=== PATIENT | female | born 1955 | race Caucasian/White ===

== ENCOUNTER 2019-07-27 07:00 | Observation (INO) | payer MEDICARE ==
--- NOTE | 2019-07-17 15:30 | HP ---
AMENDED REPORT NOW INCLUDES DESIGNATED COSIGNER - ESIGNED BEFORE ADJUSTMENTS CC: Dr. Kinsey; Dr. Shobha Conteh; Dr. Brown * PREOPERATIVE HISTORY AND PHYSICAL: DATE OF ADMISSION/SURGERY: 07/24/19 This patient is scheduled for same-day surgery admission with overnight extension by Dr. Copeland on 07/27/19. DATE OF PREOPERATIVE HISTORY AND PHYSICAL EXAMINATION: 07/17/19 ATTENDING SURGEON: Dr. Shanice Copeland * (dictated by Emili Howell, ANN) CHIEF COMPLAINT: Left breast cancer. HISTORY OF PRESENT ILLNESS: The patient is a 63-year-old female who underwent needle localization and excision of left breast cancer by Dr. Copeland, 06/22/19. 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 After discussion with Dr. Brown, Dr. Copeland has recommended a completion left mastectomy and sentinel lymph node biopsy. The patient expressed an interest in immediate reconstruction and was referred to Dr. Kinsey. Dr. Copeland described the nature of the left mastectomy and sentinel lymph node biopsy, The rationale for the procedure, the relevant risks and benefits, and today I discussed the typical postoperative care and recovery. The patient has an appointment with Dr. Kinsey tomorrow for her preop visit and knows that she will have further patient education at that time. The patient has had a chance to ask questions and stated that she understands the information and is satisfied with the answers given to all questions. She will sign surgical consent on the day of surgery. Additional information includes no family history of breast or ovarian cancer; she was on control pills off and on for about 10 years, more than 20 years ago. No other hormonal therapy was taken. She was about 12 with her first menstrual period; she had a at age 16 and that child at age 2-1/2. She did breastfeed with her subsequent pregnancies. She believes she went through menopause between age 43 and 48. PAST MEDICAL HISTORY: 1. Hypertension. 2. Seasonal allergies. 3. Anxiety. PAST SURGICAL HISTORY: 1. Needle localization, excision of left breast cancer 06/22/[address] Copeland. 2. Left shoulder surgery 2010 and right knee surgery 2012. OB HISTORY: 2, para 2. She is up to date with pelvic exam, Pap smear, breast exam, and mammogram in 2019 and is postmenopausal. MEDICATIONS: 1. Fluoxetine 10 mg p.o. daily. 2. Losartan potassium 100 mg p.o. daily. 3. Xyzal 5 mg p.o. daily. 4. Ferrous sulfate 325 mg p.o. daily. 5. Multivitamin 1 tablet daily. 6. Vitamin C 500 mg 1 tablet daily. ALLERGIES: No known drug allergies. She does have severe tape allergies that cause severe skin irritation. FAMILY HISTORY: No known breast or ovarian cancer. No known anesthesia complications or bleeding tendencies. No known clotting disorders; mother from colon cancer, father from bladder cancer and coronary artery disease. She has 1 brother with the history of thyroid cancer and prostate cancer and 1 sister who is alive and well. SOCIAL HISTORY: She is ; she has never been a smoker. She drinks 2 to 3 glasses of wine daily. She denies the use of other substances. REVIEW OF SYSTEMS: Constitutional: No fevers, chills, night sweats, excessive fatigue, or unintended weight loss. Endocrine: No diabetes or thyroid disease. Hematologic: No easy bruising or bleeding. Breasts: As described in history of present illness, and currently she has experienced postoperative left breast incisional pain that Dr. 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 Respiratory: No dyspnea on exertion. No chronic cough. Cardiovascular: No anginal chest pain or palpitations. Gastrointestinal: No nausea, vomiting, diarrhea, GI bleeding, or constipation. No change in bowel habits. Genitourinary: No dysuria. Musculoskeletal: Normal strength and tone. Integumentary: No chronic rashes or skin changes. Neurologic: No headache or blurred vision, no areas of focal weakness or numbness. General: No history of anesthesia complications, no history of deep vein thrombosis or pulmonary embolism. No previous blood transfusions. PHYSICAL EXAMINATION GENERAL SURVEY: The patient is a 63-year-old female, well developed, well nourished, in no acute distress. VITAL SIGNS: Height 65 inches, weight 173 pounds, body mass index 28.8. Blood pressure 120/82, pulse 78 and regular, respiratory rate 12, temperature 97 tympanic. HEENT: Benign. NECK: Supple. No cervical lymphadenopathy. No supraclavicular lymphadenopathy. BREASTS: Symmetrical. Left breast with well-healed surgical scar with a mildly palpable "cord" possibly consistent with Mondor's phlebitis. No erythema or evidence of infection. Palpation of the right breast reveals no discrete masses. Palpation of the left breast reveals induration consistent with surgical scaring but otherwise no other discrete masses. The axillae have no adenopathy. There is no nipple retraction or nipple discharge bilaterally. LUNGS: Breath sounds bilaterally clear and equal. HEART: Regular rate and rhythm. No murmurs or rubs. ABDOMEN: Soft, nontender throughout and nondistended. Pelvic and rectal exams deferred. EXTREMITIES: Warm without edema or skin ulceration. NEUROLOGIC: Alert and oriented x3. Steady gait. SKIN: Warm, dry, intact. IMPRESSION: Malignant neoplasm, left breast. PLAN: Same-day surgery admission with overnight extension to Dr. Copeland's service on 07/27/19 for left mastectomy and sentinel lymph node biopsy; Dr. Kinsey plans to do immediate reconstruction at the same setting. TIME SPENT: Sixty minutes with greater than 50% in [id number], the patient's physical examination, history taking, and coordination of care. AKANKSHA HOWELL NP [id number]/[facility] #: [id number] GLADIS
[~2019-07-27 07:00] MED LIST: Buffered Lidocaine 1% SYRIN* 1 ML/SYRINGE INTRADERM ONE; Famotidine IV* 10 MG/ML 2 ML (20 mg) IV ONE; Lactated Ringers 1000 ML Bag* 1,000 ML IV SCH
--- OUTSIDE RECORDS SUMMARY | 2019-07-27 07:04 | XMS REPORT | Continuity of Care Document ---
:1955 External Reference #:[id number] Author Name Emili Lieberman NP (transmitted by agent of provider Juli Thomas) Address [address] [place] [address] Care Team Providers Name Role Phone Shobha Conteh MD - Internal Care Team Information Transportation Manager [phone] Medicine Problems Description No Information Available Social History Type Date Description Comments Sex Unknown Tobacco Use Start: Unknown Never Smoked Cigarettes Smoking Status Reviewed: 07/17/19 Never Smoked Cigarettes ETOH Use Currently consumes wine with dinner alcohol Tobacco Use Start: Unknown Patient has never smoked Recreational Drug Use Denies Drug Use Exercise Type/Frequency Exercises sporadically Allergies, Adverse Reactions, Alerts Description No Known Drug Allergies Medications Active Medications SIG Qnty Indications Ordering Provider Date Fluoxetine HCL qd Elver Hassan 10mg MD Thiago Capsules Losartan Potassium 1 by mouth every Unknown 100mg day Tablets Multivitamin Adult 1 by mouth every Unknown Tablets day Ferrous Sulfate 1 by mouth every Unknown 325(65Fe) day mg Tablets Vitamin C 1 by mouth every Unknown 500mg Capsules day Immunizations Description No Information Available Vital Signs Date Vital Result Comment 07/17/2019 9:25am Height 65 inches 5'5" Weight 173.00 lb Heart Rate 78 /min BP Systolic Sitting 120 mmHg BP Diastolic Sitting 82 mmHg Respiratory Rate 12 /min Body Temperature 97.0 F BMI (Body Mass Index) 28.8 kg/m2 07/05/2019 1:22pm Heart Rate 66 /min Respiratory Rate 16 /min Body Temperature 97.0 F Results Test Date Facility Test Result H/L Range Note Laboratory test 06/22/2019 [facility] Surgical SEE RESULT [address] [place] [address] [phone] 1 SEE RESULT BELOW Name: KYLEIGH BOWLES : [address]: Shanice Copeland MD Acct: [id number] Unit: [id number] AGE: 63 Location: [facility] Re06/22/19 SEX: F [place] [facility] [place]: [id number] CIRILO: 06/22/19- SUBM DR: Shanice Copeland MD REQ: [id number] RECD: 06/22/191358 STATUS: JT MORALES DR: Jaswinder Willard MD _ ORDERED: LEVEL 5 FINAL DIAGNOSIS Breast, left, lumpectomy: -- Ductal carcinoma in situ (DCIS), with: Size: approximately 4 cm. Extent and distribution: Involves lateral and mid specimen. Architectural pattern: Solid, comedo, and micropapillary types. Nuclear grade: High. Necrosis: Present. Microcalcifications: Present. Microinvasion: Not identified. ER/TN by immunohistochemistry with appropriate controls: ER: Per [id number] negative (0%). TN: Per N30-9079 negative (0%). Margins: DCIS is 0.5 mm from the inferior anterior margin and 2 mm from the deep margin. DCIS is greater than 5 mm from the anterior superior margin. Other findings: None. pTNM histopathologic stage: pTis. PRE-OPERATIVE DIAGNOSIS Needle localization excision of left breast ductal carcinoma in situ, suture coleman short superior, long lateral, medium medial CONTINUED ON NEXT PAGE DEPARTMENT OF PATHOLOGY, [address] [place] [address] Brooks Farias M.D. Director [facility] # [id number] RUN DATE: 06/28/19 [facility] LAB LIVE PAGE 2 Patient: KYLEIGH BOWLES [id number] (Continued) GROSS DESCRIPTION (Continued) GROSS DESCRIPTION The specimen is received fresh labeled, Left Breast Ductal Carcinoma In Situ , and consists of a 7.8 x 5.8 x 3.6 cm yellow ovoid portion of fibrofatty soft tissue with three attached sutures which are designated as follows: long-lateral, short-superior and medium-medial. The specimen is partially surfaced by a 2.8 x 0.9 cm littlejohn-white wrinkled skin ellipse on the mid anterior surface. There is a needle localization wire entering the specimen through the skin ellipse and extending towards the central specimen. There is an ill- defined dense focally nodular littlejohn-white area of fibrous tissue measuring up to 2.1 cm within the central specimen associated with the localization wire, 1.0 cm from the deep margin, 1.1 cm from the superior anterior margin, and 1.2 cm from the skin. A definitive lesion is not identified. The remaining cut surface consists predominantly of yellow lobulated adipose tissue with scant interspersed littlejohn dickey fibrous tissue. The specimen is inked as follows : superior anterior-blue, inferior anterior-green and deep-black, serially sectioned from lateral to medial and practice representative sections are submitted in cassettes A through P to include dense area in cassettes B through H including section associated with wire in cassettes G and H. Signed by and Reported on: Dejah Pyle MD 06/28/19 0947 END OF REPORT DEPARTMENT OF PATHOLOGY, [address] [place] [address] Brooks Farias M.D. Director [facility] # [id number] Procedures Date Code Description Status 06/22/2019 89430 Mastectomy Partial Completed 06/22/2019 [id number] Mammogram Completed 05/28/2019 [id number] Mammogram Completed 05/23/2019 [id number] Mammogram Completed 04/08/2017 [id number] Mammogram Completed Medical Devices Description No Information Available Encounters Type Date Location Provider Dx Diagnosis Office Visit 06/01/2019 Surgical Shanice Copeland, C50.912 Malignant neoplasm 11:00a [facility] of unspecified site of left female breast Assessments Date Code Description Provider 07/17/2019 C50.912 Malignant neoplasm of unspecified site Emili Lieberman NP of left female breast 07/17/2019 Z01.818 Encounter for other preprocedural Emili Lieberman NP examination 07/05/2019 C50.912 Malignant neoplasm of unspecified site Shanice Copeland MD of left female breast 07/04/2019 C50.912 Malignant neoplasm of unspecified site Shanice Copeland MD of left female breast 06/29/2019 C50.912 Malignant neoplasm of unspecified site Shanice Copeland MD of left female breast 06/22/2019 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 Copeland MD breast 06/01/2019 C50.912 Malignant neoplasm of unspecified site Shanice Copeland MD of left female breast Plan of Treatment Future Appointment(s):07/27/2019 12:00 pm - Emili Lieberman NP at [facility]07/27/2019 12:00 pm - Shanice Copeland MD at [facility]08/08/2019 8:30 am - Shanice Copeland MD at [facility]07/17/2019 - Emili Lieberman, NPC50.912 Malignant neoplasm of unspecified site of left female breastFollow up:[facility] Encounter for other preprocedural examination Functional Status Description No Information Available Mental Status Description No Information Available Referrals Refer to Reason for Referral Status Appt Date Alexis Kinsey MD Pt. with DCIS needs mastectomy; would like Closed 07/11 immediate reconstruction. [address] [place] [address] [phone] Rico Wheatley MD Newly diagnosed left breast cancer; planning Closed 07/2019 breast conservation [address] [place] [phone]
--- OUTSIDE RECORDS SUMMARY | 2019-07-27 07:04 | XMS REPORT | Continuity of Care Document ---
:1955 External Reference #:[id number] Author Name Payton Brown M.D. (transmitted by agent of provider Argelia Ceballos) Address [address] [facility] [address] [place] [address] Care Team Providers Name Role Phone Shobha Conteh MD - Internal Care Team Information Outreach Team Member [phone] Medicine Problems Description No Information Available Social [...] by mouth every Unknown 500mg Capsules day Xyzal 1 tab po daily Unknown 5mg Tablets Immunizations Description No Information Available Vital Signs [...] Date Facility Test Result H/L Range Note CBC Auto 07/23/2019 [facility] White Blood 5.4 10^3/uL Normal 3.5-10.8 Diff [facility] [place] [address] [phone] Red Blood Count 4.52 10^6/uL Normal 3.70-4.87 Hemoglobin 14.5 g/dL Normal 12.0-16.0 Hematocrit 43 % Normal 35-47 Mean Corpuscular Volume 95 fL Normal 80-97 Mean Corpuscular Hemoglobin 32 pg High 27-31 Mean Corpuscular HGB Conc 34 g/dL Normal 31-36 Red Cell Distribution Width 14 % Normal 10-15 Platelet Count 202 10^3/uL Normal 150-450 Mean Platelet Volume 9.8 fL Normal 7.4-10.4 Abs Neutrophils 3.4 10^3/uL Normal 1.5-7.7 Abs Lymphocytes 1.1 10^3/uL Normal 1.0-4.8 Abs Monocytes 0.7 10^3/uL Normal 0-0.8 Abs Eosinophils 0.1 10^3/uL Normal 0-0.6 Abs Basophils 0.1 10^3/uL Normal 0-0.2 Abs Nucleated RBC 0.0 10^3/uL Granulocyte % 63.1 % Lymphocyte % 21.2 % Monocyte % 12.2 % Eosinophil % 2.3 % Basophil % 1.2 % Nucleated Red Blood Cells % 0.1 Basic Metabolic 07/23/2019 [facility] Sodium 141 mmol/L Normal 135-145 Panel [facility] [place] [address] [phone] Potassium 4.3 mmol/L Normal 3.5-5.0 Chloride 106 mmol/L Normal 101-111 Co2 Carbon Dioxide 29 mmol/L Normal 22-32 Anion Gap 6 mmol/L Normal 2-11 Glucose 96 mg/dL Normal 70-100 Blood Urea Nitrogen 19 mg/dL Normal 6-24 Creatinine 0.67 mg/dL Normal 0.51-0.95 BUN/Creatinine Ratio 28.4 High 8-20 Calcium 9.6 mg/dL Normal 8.6-10.3 Egfr Non- 88.3 >60 Egfr 106.9 >60 1 Type & Screen 07/23/2019 [facility] Patient Blood [place] [address] [phone] Antibody Screen NEGATIVE Laboratory test 06/22/2019 [facility] Surgical SEE RESULT [address] [place] [address] [phone] 1 Because ethnic data is not always readily available, this report includes an eGFR for both -Americans and non- Americans. The National Kidney Disease Education Program (NKDEP) does not endorse the use of the MDRD equation for patients that are not between the ages of 18 and 70, are , have extremes of body size, muscle mass, or nutritional status, or are non- or non-. According to the National Kidney Foundation, irrespective of diagnosis, the stage of the disease is based on the level of kidney function: Stage Description GFR(mL/min/1.73 m(2)) 1 Kidney damage with normal or decreased GFR 90 2 Kidney damage with mild decrease in GFR 60-89 3 Moderate decrease in GFR 30-59 4 Severe decrease in GFR 15-29 5 Kidney failure <15 (or dialysis) 2 SEE RESULT BELOW Name: KYLEIGH LABOY : [address]: Shanice Copeland MD Acct: [id number] Unit: [id number] AGE: 63 Location: [facility] Re06/22/19 SEX: F Status: REG [facility] [place] SPEC: [id number] CIRILO: 06/22/19- SUBM DR: Shanice Copeland MD REQ: [id number] RECD: 06/22/198 STATUS: JT MORALES DR: Jaswinder Willard MD _ ORDERED: LEVEL 5 FINAL DIAGNOSIS Breast, left, lumpectomy: -- Ductal carcinoma in situ (DCIS), with: Size: approximately 4 cm. Extent and distribution: Involves lateral and mid specimen. Architectural pattern: Solid, comedo, and micropapillary types. Nuclear grade: High. Necrosis: Present. Microcalcifications: Present. Microinvasion: Not identified. ER/IA by immunohistochemistry with appropriate controls: ER: Per [id number] negative (0%). IA: Per [id number] negative (0%). Margins: DCIS is 0.5 mm [...] CONTINUED ON NEXT PAGE DEPARTMENT OF PATHOLOGY, [address] [place] [address] Brooks Farias M.D. Director [facility] # [id number] RUN DATE: 06/28/19 [facility] LAB LIVE PAGE 2 Patient: KYLEIGH LABOY [id number] (Continued) GROSS DESCRIPTION (Continued) GROSS DESCRIPTION The [...] serially sectioned from lateral to medial and healthcare sales representative sections are submitted in cassettes A through P to include dense area in cassettes B through H including section associated with wire in cassettes G and H. Signed by and Reported on: Dejah Pyle MD 06/28/19 0947 END OF REPORT DEPARTMENT OF PATHOLOGY, [address] [place] [address] Brooks Farias M.D. Director [facility] # [id number] Procedures Date Code Description Status 06/22/2019 00478 Mastectomy Partial Completed 06/22/2019 [id number] Mammogram Completed 05/28/2019 [id number] Mammogram Completed 05/23/2019 [id number] Mammogram Completed 04/08/2017 [id number] Mammogram Completed Medical Devices Description No Information Available Encounters Type Date Location Provider Dx Diagnosis Office Visit 06/01/2019 Surgical Shanice Copeland, C50.912 Malignant neoplasm 11:00a [facility] MD of unspecified site of left female breast [...] Emili Lieberman NP at [facility]07/27/2019 12:00 pm - Shanice Copeland MD at [facility]08/08/2019 8:30 am - Shanice Copeland MD at [facility] Functional Status Description No Information Available Mental Status Description No Information Available Referrals Refer to Dr Reason for Referral Status Appt Date Alexis Kinsey MD Pt. with DCIS needs mastectomy; would like Closed 07/11 immediate reconstruction. [address] [facility] [place] [address] [phone] Rico Wheatley MD Newly diagnosed left breast cancer; planning Closed 07/2019 breast conservation [address] [place] [phone]
--- OUTSIDE RECORDS SUMMARY | 2019-07-27 07:04 | XMS REPORT | Continuity of Care Document ---
:1955 External Reference #:[id number] Author Name Shanice Copeland MD (transmitted by agent of provider Juli Thomas) Address [address] [facility] [address] [place] [address] Care Team Providers Name Role Phone Shobha Conteh MD - Internal Care Team Information Netsuite Consultant [phone] Medicine Problems Description No Information Available Social History Type Date Description Comments Sex Unknown Tobacco Use Start: Unknown Never Smoked Cigarettes Smoking Status Reviewed: 07/05/19 Never Smoked Cigarettes ETOH Use Currently consumes wine with dinner alcohol Tobacco Use Start: Unknown Patient has never smoked Recreational Drug Use Denies Drug Use Exercise Type/Frequency Exercises sporadically Allergies, Adverse Reactions, Alerts Description No Known Drug Allergies Medications Active Medications SIG Qnty Indications Ordering Provider Date Fluoxetine HCL qd Elver Hassan 10mg MD Thiago Capsules Centrum 1 by mouth every Unknown Tablets day Calcium 600 1 by mouth every Unknown 600mg day Tablets Melatonin 1 tab by mouth at Unknown 10mg Capsules bedtime as needed for insomnia Losartan Potassium 1 by mouth every Unknown day 100mg Tablets Immunizations Description No Information Available Vital Signs Date Vital Result Comment 07/05/2019 1:22pm Heart Rate 66 /min Respiratory Rate 16 /min Body Temperature 97.0 F 06/29/2019 10:58am Heart Rate 78 /min Respiratory Rate 16 /min Body Temperature 97.7 F Results Test Date Facility Test Result H/L Range Note Laboratory test 06/22/2019 [facility] Surgical SEE RESULT [address] [place] [address] [phone] 1 SEE RESULT BELOW Name: KYLEIGH BOWLES : [address]: Shanice Copeland MD Acct: [id number] Unit: [id number] AGE: 63 Location: SDS Re06/22/19 SEX: F Status: REG SDC SPEC: [id number] CIRILO: 06/22/19- [facility] DR: Shanice Copeland MD REQ: [id number] RECD: 06/22/198 STATUS: JT MORALES DR: Jaswinder Willard MD _ ORDERED: LEVEL 5 FINAL DIAGNOSIS Breast, left, lumpectomy: -- Ductal carcinoma in situ (DCIS), with: Size: approximately 4 cm. Extent and distribution: Involves lateral and mid specimen. Architectural pattern: Solid, comedo, and micropapillary types. Nuclear grade: High. Necrosis: Present. Microcalcifications: Present. Microinvasion: Not identified. ER/OH by immunohistochemistry with appropriate controls: ER: Per [id number] negative (0%). OH: Per [id number] negative (0%). Margins: DCIS is 0.5 mm [...] CONTINUED ON NEXT PAGE DEPARTMENT OF PATHOLOGY, [address] [place] [address] Brooks Farias M.D. Director [facility] # [id number] RUN DATE: 06/28/19 [facility] LAB LIVE PAGE 2 Patient: KYLEIGH BOWLES [id number] (Continued) GROSS DESCRIPTION (Continued) GROSS DESCRIPTION The [...] serially sectioned from lateral to medial and client care representative sections are submitted in cassettes A through P to include dense area in cassettes B through H including section associated with wire in cassettes G and H. Signed by and Reported on: Dejah Pyle MD 06/28/19 0947 END OF REPORT DEPARTMENT OF PATHOLOGY, [address] [place] [address] Brooks Farias M.D. Director [facility] # [id number] Procedures Date Code Description Status 06/22/2019 50960 Mastectomy Partial Completed 06/22/2019 [id number] Mammogram Completed 05/28/2019 [id number] Mammogram Completed 05/23/2019 [id number] Mammogram Completed 04/08/2017 [id number] Mammogram Completed Medical Devices Description No Information Available Encounters Type Date Location Provider Dx Diagnosis Office Visit 06/01/2019 Surgical Shanice Copeland, C50.912 Malignant neoplasm 11:[facility] of unspecified site of left female breast Assessments Date Code Description Provider 07/04/2019 C50.912 Malignant neoplasm of unspecified site of left Shanice Copeland MD female breast 06/29/2019 C50.912 Malignant neoplasm of unspecified site of left Shanice Copeland MD female breast 06/22/2019 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 Shanice Abhinav Foster, MD 06/01/2019 C50.912 Malignant neoplasm of unspecified site of left Shanice Copeland MD female breast Plan of Treatment Future Appointment(s):08/08/2019 8:30 am - Shanice Copeland MD at [facility]07/17/2019 9:30 am - Emili Lieberman NP at [facility]08/03/2019 12:00 pm - Emili Lieberman NP at [facility]08/03/2019 12:00 pm - Shanice Copeland MD at [facility] Functional Status Description No Information Available Mental Status Description No Information Available Referrals Refer to Reason for Referral Status Appt Date Alexis Kinsey MD Pt. with DCIS needs mastectomy; would like Scheduled immediate reconstruction. [address] [facility] [address] [place] [address] [phone] Rico Wheatley MD Newly diagnosed left breast cancer; planning Closed 07/2019 breast conservation [address] [place] [phone]
--- OUTSIDE RECORDS SUMMARY | 2019-07-27 07:04 | XMS REPORT | Continuity of Care Document ---
:1955 External Reference #:[id number] Author Name Shobha Conteh MD Address [address] [place] [address] Problems Active Problems Provider Date Benign essential hypertension Shobha Conteh MD Onset: 01/29/2019 Malignant neoplasm of female breast Shobha Conteh MD Onset: 07/24/2019 Moderate recurrent major depression Shobha Conteh MD Onset: 07/24/2019 Social History Type Date Description Comments Sex Unknown Tobacco Use Start: Unknown Patient has never smoked Smoking Status Reviewed: 07/24/19 Patient has never smoked Allergies, Adverse Reactions, Alerts Description No Known Drug Allergies Medications Active Medications SIG Qnty Indications Ordering Date Provider Calcium 600 1 by mouth M85.9 Wero Shobha 03/23/2019 600mg Tablets every other day [facility] [place] Myrbetriq 1 by mouth 30tabs N32.81 [facility] 03/23/2019 25mg Tablets ER every day [facility] [place] 24HR Shingrix 2 shot series 2units Z00.01 Wero [facility] 03/23/2019 50mcg/0.5ML [facility] [place] Suspension Rec Losartan Potassium 1 by mouth 30tabs I10 [facility] 01/29/2019 100mg every day MD [place] Tablets Fluoxetine HCL 1 by mouth 90caps F33.1 [facility] 01/29/2019 10mg every day MD [place] Capsules Levocetirizine 1 by mouth 30tabs J30.1 [facility] 01/29/2019 Dihydrochloride every night at MD [place] 5mg Tablets bedtime Mometasone Furoate inhale [address] [facility] Shobha 01/29/2019 spray(s) in MD [place] 50mcg/Act Suspension each nostril once daily Albuterol Sulfate HFA 2 p four times 8.500gm J45.40 [facility] Shobha 01/29 a day as needed [facility] [place] 108(90Base) mcg/Act Aerosol History Medications Oxybutynin Chloride 1 by mouth 30tabs N32.81 [facility] Shobha 01/29/2019 - ER every day MD [place] 01/29/2019 5mg Tablets ER 24HR Candesartan Cilexetil 1 by mouth 30tabs I10 [facility] Shobha 01/29/2019 - every day [facility] [place] 01/29/2019 32mg Tablets Oxybutynin Chloride 1 by mouth 30tabs N32.81 [facility]ero Shobha 01/29/2019 - ER every day MD [place] 03/23/2019 10mg Tablets ER 24HR Immunizations CPT Code Status Date Vaccine Lot # [id number] Given 03/23/2019 Prevnar 13 Pneumococal Conjugate Vaccine [id number] 04938 Given 08/19/2017 Tdap (Adacel) Ages 7 And Above Only 12474 Given 09/17/2014 Pneumococcal 23 Immunization Adult Or Immunosuppressed Patient 18125 Given 12/05/2013 Zoster (Zostavax) Vital Signs Date Vital Result Comment 07/24/2019 11:40am Weight 178.00 lb Heart Rate 64 /min BP Systolic 122 mmHg BP Diastolic 80 mmHg Height 64 inches 5'4" BMI (Body Mass Index) 30.6 kg/m2 03/23/2019 2:21pm Weight 182.00 lb Heart Rate 88 /min BP Systolic 128 mmHg BP Diastolic 84 mmHg Height 64 inches 5'4" BMI (Body Mass Index) 31.2 kg/m2 Results Test Date Facility Test Result H/L Range Note CBC with Auto Diff-fcmg 03/23/2019 [facility] 6.0 K/uL 4.1-11.0 1 RBC 4.60 M/uL 4.00-5.40 Hemoglobin 15.2 gm/dL 12.0-16.0 Hematocrit 45.1 % 36.0-47.0 MCV 97.9 fL High 80.0-97.0 MCH 33.0 pg High 27.0-32.0 MCHC 33.7 g/dL 32.0-36.0 RDW 14.6 % High 11.5-14.5 PLT Count 215 K/ul 140-400 MPV 9.9 FL 7.1-10.7 Neutrophil 65.1 % 35.0-75.0 Lymphocyte 25.0 % 16.0-52.0 Monocyte 7.9 % 2.0-10.0 Eosinophil 1.2 % 0.0-5.0 Basophil 0.8 % 0.0-4.0 Abs Neutrophils 3.9 K/uL 2.1-8.0 Abs Lymphocytes 1.5 K/uL 0.8-5.5 Abs Monocytes 0.5 K/uL 0.1-1.0 Abs Eosinophils 0.1 K/uL 0.0-0.5 Abs Basophils 0.0 K/uL 0.0-0.3 Comprehensive Met Panel-[facility] 03/23/2019 [facility] Sodium 143 mmol/L 135- 146 2 Potassium 4.3 mmol/L 3.5-5.2 Chloride# 103 mmol/L 97-110 3 Carbon Dioxide 33 mmol/L 24-34 Calcium 10.2 mg/dL 8.5-10.5 4 Glucose 126 mg/dL High 70-105 BUN 14 mg/dL 6-26 Creatinine 0.7 mg/dL 0.5-1.4 Total Protein 6.8 g/dL 6.0-8.0 Albumin 4.7 g/dL 3.6-4.9 Globulin 2.1 g/dL 2.0-3.5 A/G Ratio 2.2 Ratio 1.0-2.2 Total Bilirubin 0.8 mg/dL 0.1-1.3 Alkaline Phosphatase 50 U/L 24-140 Alt 40 U/L 3-42 Ast 36 U/L 8-42 Anion Gap 7 mmol/L 5-15 5 Female Egfr 85 >60 6 Male Egfr 97 >60 7 Lipid 03/23/2019 [facility] Cholesterol 169 mg/dL 50-199 Triglycerides 87 mg/dL 30-200 HDL 81 mg/dL 35-85 8 Chol/ HDL Ratio 2.1 ratio Low 3.7-5.6 VLDL 17 mg/dL 2-29 LDL (Calc) 71 mg/dL 20-99 9 [facility] test [facility] 25 Hydroxy 47 ng/mL 30-100 10 Hemoglobin A1c [facility] A[facility] 5.1 % 4.1-5.9 Estimated Average Glucose Calc 100 mg/dL 71-140 Laboratory test 02/08/2019 [facility] Hepatitis C negative finding Antibody-fcmg 1 This sample is drawn by:JAMAR. 2 Updated reference range on new analyzer 3 Updated reference range on new analyzer 4 Updated reference range 03-07-2019 5 Updated Reference Range 6 Concerning GFR Guidelines for Americans: Normal function or mild renal disease, if clinically at risk: >/= 60 mL/min Moderately decreased: 30-59 Severely decreased: 15-29 Renal failure: <15 There is reduced accuracy above 60ml/min/1.73 m squared, but the numeric value may be clinically useful in the near 60 range 7 Concerning GFR Guidelines: Normal function or mild renal disease, if clinically at risk: >/= 60 mL/min Moderately decreased: 30-59 Severely decreased: 15-29 Renal failure: <15 There is reduced accuracy above 60ml/min/1.73 m squared, but the numeric value may be clinically useful in the near 60 range Glomerular Filtration Rate (GFR) is estimated based on the CKD-EPI equation, which assumes a steady state for creatinine as recommended by the National Kidney Disease Education Program in conjunction with the National Institutes of Health and the National Kidney Foundation. Clinical conditions in which it may be necessary to measure GFR by using clearance methods include extremes of age and body size, severe malnutrition or obesity, diseases of skeletal muscle, paraplegia or quadriplegia, vegetarian diet, rapidly changing kidney function, and calculation of the dose of potentially toxic drugs that are excreted by the kidneys. 8 Per NCEP ATP III Guidelines: Results lower than 40 mg/dL are suggestive of increased risk for coronary artery disease. Results > or = to 60 mg/dL are considered a negative risk factor. 9 Per NCEP ATP III Guidelines: Normal Population <130 Patients with medical conditions: CHD/DM Optimal: <100 Borderline high: 130-159 High: 160-189 Very high: >189 10 Clinical Guidelines for recommended serum 25(OH)Vitamin D Deficient at less than 20 ng/mL Insufficient at 20 to <30 ng/mL Sufficient at 30-100 ng/mL Toxicity at greater than 100 ng/mL Procedures Date Code Description Status 05/28/2019 [id number] Mammogram Completed 05/23/2019 [id number] Mammogram Completed 03/23/2019 48103 Electrocardiogram Complete Completed 05/22/2018 [id number] Bone Mineral Density Test Completed 05/22/2018 [id number] Mammogram Completed 04/08/2017 [id number] Mammogram Completed 09/08/2016 [id number] Colonoscopy Completed Medical Devices Description No Information Available Encounters Type Date Location Provider Dx Diagnosis Office Visit 03/23/2019 Shobha Luna Z00.01 Encounter for 2:15p [facility] [place] general adult medical exam w abnormal findings I10 Essential (primary) hypertension R05 Cough F33.1 Major depressive disorder, recurrent, moderate Z12.11 Encounter for screening for malignant neoplasm of colon J45.40 Moderate persistent asthma, uncomplicated E66.9 Obesity, unspecified N32.81 Overactive bladder J30.1 Allergic rhinitis due to pollen M85.9 Disorder of bone density and structure, unspecified Z23 Encounter for immunization M72.0 Palmar fascial fibromatosis [Dupuytren] M54.16 Radiculopathy, lumbar region Z68.31 Body mass index (BMI) 31.0-31.9, adult Office Visit 01/29/2019 10:45a Shobha Luna E66.9 Obesity, unspecified [facility] [place] I10 Essential (primary) hypertension R05 Cough N32.81 Overactive bladder F33.1 Major depressive disorder, recurrent, moderate M54.16 Radiculopathy, lumbar region Z12.31 Encntr screen mammogram for malignant neoplasm of breast J30.1 Allergic rhinitis due to pollen J45.40 Moderate persistent asthma, uncomplicated Z68.31 Body mass index (BMI) 31.0-31.9, adult Assessments Date Code Description Provider 07/24/2019 E66.9 Obesity, unspecified Shobha Conteh MD 07/24/2019 I10 Essential (primary) hypertension Shobha Conteh MD 07/24/2019 R73.01 Impaired fasting glucose Shobha Conteh MD 07/24/2019 F33.1 Major depressive disorder, recurrent, Shobha Conteh MD moderate 07/24/2019 C50.912 Malignant neoplasm of unspecified site of Shobha Conteh MD LEFT female breast 07/24/2019 J45.40 Moderate persistent asthma, uncomplicated Shobha Conteh MD 07/24/2019 J30.1 Allergic rhinitis due to pollen Shobha Conteh MD 07/24/2019 N32.81 Overactive bladder Shobha Conteh MD 07/24/2019 Z68.30 Body mass index (BMI) 30.0-30.9, adult Shobha Conteh MD 03/23/2019 R73.01 [facility]aired [facility] 03/23/2019 Z00.01 Encounter for general adult medical Shobha Conteh MD examination with abnorma 03/23/2019 M85.9 Disorder of bone density and structure, [facility] unspecified 03/23/2019 I10 Essential (primary) hypertension Shobha Conteh MD 03/23/2019 R05 Cough Shobha Conteh MD 03/23/2019 F33.1 Major depressive disorder, recurrent, Shobha Conteh MD moderate 03/23/2019 Z12.11 Encounter for screening for malignant Shobha Conteh MD neoplasm of colon 03/23/2019 J45.40 Moderate persistent asthma, uncomplicated Shobha Conteh MD 03/23/2019 E66.9 Obesity, unspecified Shobha Conteh MD 03/23/2019 N32.81 Overactive bladder Shobha Conteh MD 03/23/2019 J30.1 Allergic rhinitis due to pollen Shobha Conteh MD 03/23/2019 M85.9 Disorder of bone density and structure, Shobha Conteh MD unspecified 03/23/2019 Z23 Encounter for immunization Shobha Conteh MD 03/23/2019 M72.0 Palmar fascial fibromatosis [Dupuytren] Shobha Conteh MD 03/23/2019 M54.16 Radiculopathy, lumbar region Shobha Conteh MD 03/23/2019 I10 Essential (primary) hypertension [facility] 03/23/2019 Z68.31 Body mass index (BMI) 31.0-31.9, adult Shobha Conteh MD 03/23/2019 M85.9 Disorder of bone density and structure, [facility] unspecified 01/29/2019 E66.9 Obesity, unspecified Shobha Conteh MD 01/29/2019 I10 Essential (primary) hypertension Shobha Conteh MD 01/29/2019 R05 Cough Shobha Conteh MD 01/29/2019 N32.81 Overactive bladder Shobha Conteh MD 01/29/2019 F33.1 Major depressive disorder, recurrent, Shobha Conteh MD moderate 01/29/2019 M54.16 Radiculopathy, lumbar region Shobha Conteh MD 01/29/2019 Z12.31 Encounter for screening mammogram for Shobha Conteh MD malignant neoplasm of 01/29/2019 J30.1 Allergic rhinitis due to pollen Shobha Conteh MD 01/29/2019 J45.40 Moderate persistent asthma, uncomplicated Shobha Conteh MD 01/29/2019 Z68.31 Body mass index (BMI) 31.0-31.9, adult Shobha Conteh MD Plan of Treatment Future Appointment(s):10/23/2019 10:45 am - Shobha Conteh MD at [id number] - Shobha Conteh MDE66.9 Obesity, rmvysfxewsrL40 Essential (primary) hypertensionFollow up:u shot 1 mos f/u 3-4 mosR73.01 Impaired fasting gzhthylY18.1 Major depressive disorder, recurrent, qbagxshhM04.912 Malignant neoplasm of unspecified site of LEFT female irpmzsY54.40 Moderate persistent asthma, mwlkesfvlghyyP55.1 Allergic rhinitis due to xmzcilJ71.81 Overactive fubfyldW28.30 Body mass index (BMI) 30.0-30.9, adult Functional Status Description No Information Available Mental Status Description No Information Available Referrals Description No Information Available
[2019-07-27] MEDS ORDERED: Lidocaine 2.5%/Prilocain 2.5%* 5 GM TUBE ONE (07:37)
[2019-07-27] MEDS ORDERED: Buffered Lidocaine 1% SYRIN* 1 ML/SYRINGE INTRADERM ONE (07:37)
[2019-07-27] MEDS ORDERED: Ondansetron INJ* 2 MG/ML VIAL ONE ×2 (08:58→12:26)
[2019-07-27] MEDS ORDERED: Dexamethasone IV* 4 MG/ML 1 ML (4 MG) ONE (08:58)
[2019-07-27] MEDS ORDERED: Heparin VIAL(*) 5000 UNITS/ML VIAL (FIVE THOUSAND) ONE (08:58)
[2019-07-27] MEDS ORDERED: Famotidine IV* 10 MG/ML 2 ML (20 mg) ONE (08:59)
[2019-07-27] MEDS ORDERED: ceFAZolin 2 GM in NS PREMIX(*) 2 GM/100 ML BAG IVPB ONE (08:59)
[2019-07-27] MEDS ORDERED: Scopolamine 1.5 mg* PATCH ONE (09:12)
[2019-07-27] MEDS ORDERED: Lidocaine 2% PF * 5 ML VIAL ONE (12:26)
[2019-07-27] MEDS ORDERED: Cisatracurium* 2 MG/ML MDV 5 ML ONE (12:26)
[2019-07-27] MEDS ORDERED: Propofol* 10 MG/ML 20 ML BTL ONE (12:26)
[2019-07-27] MEDS ORDERED: Midazolam* 1 MG/ML 5 ML VIAL (5 MG) ONE (12:26)
[2019-07-27] MEDS ORDERED: KETAMINE HCL* 50 MG/ML 10 ML VIAL ONE (12:26)
[2019-07-27] MEDS ORDERED: fentaNYL* 50 MCG/ML 5 ML VIAL (250 MCG VIAL) ONE (12:26)
[2019-07-27] MEDS ORDERED: Phenylephrine 10 MG/ML VIAL* 1 ML VIAL ONE (12:27)
[2019-07-27] MEDS ORDERED: Phenylephrine 1% NASAL* 15 ML BOT ONE (12:27)
[2019-07-27] MEDS ORDERED: Methylene Blue 0.5 %* 50 MG/10 ML AMP IV ONE (13:05)
[2019-07-27] MEDS ORDERED: Gentamicin ADULT (*) 40 MG/ML VIAL (2 ML VIAL = 80 MG) ONE (13:05)
[2019-07-27] MEDS ORDERED: Bacitracin INJECTION* 50,000 UNITS ONE (13:06)
[2019-07-27] MEDS ORDERED: Bupivacaine 0.25% SDV PF* 10 ML VIAL INJ ONE (13:06)
[2019-07-27] MEDS ORDERED: ceFAZolin VIAL(*) VIAL ONE (13:07)
--- NOTE | 2019-07-27 15:56 | BRIEFOPN ---
Brief Operative/Procedure Note - Operation Details Pre-Op Diagnosis: left breast DCIS Post-Op Diagnosis: same Procedures: Left Mastectomy and [place] Lymph Node Biopsy Surgeon(s)/Proceduralists: Min. Asst: Luisana Anesthesia: General Estimated Blood Loss: 50 Findings: See dictation Specimen(s)/Culture(s) Description: Left Breast and sentinel lymph node Complications: none
[2019-07-27] MEDS ORDERED: Povidone Iodine 5% OPTH* 30 ML BTL ONE (16:30)
[2019-07-27] MEDS ORDERED: fentaNYL* 50 MCG/ML 2 ML VIAL (100 MCG VIAL) ONE ×2 (17:00→18:02)
[2019-07-27] MEDS ORDERED: Naloxone* 0.4 MG/ML 1 ML VIAL IV PRN (17:05)
[2019-07-27] MEDS ORDERED: fentaNYL* 50 MCG/ML 2 ML VIAL (100 MCG VIAL) IV PRN (17:05)
[2019-07-27] MEDS ORDERED: Ondansetron INJ* 2 MG/ML VIAL IV PRN ×2 (17:05→20:38)
[2019-07-27] MEDS ORDERED: DiMENhydriNATE IV* 50 MG/ML VIAL ONE (18:02)
[2019-07-27] MEDS ORDERED: HYDROcodone/ACETAMIN 5-325 MG* 1 TAB ONE (19:20)
[2019-07-27] MEDS ORDERED: HYDROcodone/ACETAMIN 5-325 MG* 1 TAB PO PRN (20:37)
[2019-07-27] MEDS: Lactated Ringers 1000 ML Bag* 1,000 ML IV SCH (20:47)
[2019-07-27] MEDS: Morphine INJ* 2 MG/ML 1 ML SYRINGE (TWO MG - NEW SYRINGE VERSION) IV PRN (21:42)
[2019-07-27] MEDS: Heparin VIAL(*) 5000 UNITS/ML VIAL (FIVE THOUSAND) SUBCUT SCH (21:45)
--- NOTE | 2019-07-27 22:32 | OP ---
CC: [facility]; Dr. Shobha Conteh; [facility]; Dr. Alexis johnson. OPERATIVE REPORT: DATE OF OPERATION: 07/27/19 DATE OF : 51 SURGEON: Shanice Copeland MD SOCK KNITTING MACHINE OPERATOR: Emili Lieberman NP PRE-OP DIAGNOSIS: Left breast ductal carcinoma in situ. POST-OP DIAGNOSIS: Left breast ductal carcinoma in situ. OPERATIVE PROCEDURE: Left mastectomy and sentinel lymph node biopsy. INDICATIONS: Ms. Bowles is a 63-year-old woman who had a recent diagnosis of ductal carcinoma in sit u for which she underwent a needle localization excision in the recent past. The results of that exc ision showed a nearly extensive DCIS and closed margins. So, plans were made for mastectomy and sent inel lymph node biopsy with immediate reconstruction to be done by Dr. Kinsey. On the morning of surgery, she underwent sentinel lymph node localization without difficulty. DESCRIPTION OF PROCEDURE: She was then brought to the operating room, placed on the OR table in supi ne position and given general anesthesia. The chest wall was prepped and draped in the usual sterile fashion according to Dr. Kinsey's preference. An incision was made then in the superior breast f ollowing the lines that Dr. Kinsey had made and subcutaneous tissue was divided with electrocauter y to create a flap medially to the sternum, superiorly to the clavicle, and laterally to the latissim us dorsi muscle and a second incision was then made in the inferior breast again following the line t hat Dr. Kinsey had marked, this created an ellipse around the nipple-areolar complex and the scar from the previous incision. Subcutaneous tissue was then divided again with electrocautery, medially to the sternum, inferiorly to the rectus muscle, and laterally to the latissimus dorsi muscle. Once this was done, the breast was elevated off the chest wall again using electrocautery until the latera l attachments to the chest wall were reached and then again electrocautery was used to divide the rem aining attachments to the chest wall. At this time, a search was made for the sentinel node. It was noted to be not within the breast specimen, but remaining in the axilla. So, the breast specimen wa s marked in the usual fashion and handed off. Some bleeding along the lateral chest wall was control led with a ligature. A search was then made to the sentinel node using the navigator. The node was identified and divided from surrounding tissue using sharp dissection. Clips were used to control sm all lymphatic and blood vessels that approached the gland. Its in situ counts were around 2200, its ex vivo counts were around 2800, and the residual counts in the axillary bed were 17. The case was, at this point, handed over to Dr. Kinsey once it was ascertained that hemostasis was adequate and he was to complete the reconstruction. [id number]/[facility] #: [id number]
[2019-07-28] MEDS: HYDROcodone/ACETAMIN 5-325 MG* 1 TAB PO PRN ×5 (00:27→18:05)
[2019-07-28] MEDS: Morphine INJ* 2 MG/ML 1 ML SYRINGE (TWO MG - NEW SYRINGE VERSION) IV PRN ×2 (02:41→12:04)
[2019-07-28] MEDS: Heparin VIAL(*) 5000 UNITS/ML VIAL (FIVE THOUSAND) SUBCUT SCH ×3 (05:26→22:26)
[2019-07-28] MEDS: Losartan TAB* 25 MG PO SCH (08:56)
[2019-07-28] MEDS: FLUoxetine CAP* 10 MG PO SCH (08:56)
--- NOTE | 2019-07-28 09:27 | PN ---
Progress Note - Progress Note Date of Service: 07/28/19 SOAP: Subjective: States she had a rough night with pain. Better this morning. She wants to see how she does today and overnight with pain control and go home tomorrow. Objective: Alert, NAD Afebrile, VSS VAC Prevena Restor dressing in place and functioning well. Left mastectomy site soft and flat with no signs of infection or hematoma. MAVIS moderate, mostly serous now. Assessment: POD #1 Doing well. Patient wants better pain control before going home. Plan: Increase activity. Optimize pain control. Probable discharge tomorrow with VAC and MAVIS in place.
[2019-07-28] MEDS: Ibuprofen TAB* 600 MG PO PRN ×2 (09:40→16:56)
--- NOTE | 2019-07-28 10:58 | PN ---
Progress Note - Progress Note Date of Service: 07/28/19 Note: Surgery Ms. Bowles reports she had a "rough night", having some difficulty managing pain , but she did manage with the current regimen. She was able to ambulate to the bathroom. She also had some nausea through the night. She has seen Dr. Kinsey who ordered ibuprofen. Vital Signs 07/27/19 07/27/19 07/27/19 17:59 18:00 18:01 Temperature 96.8 F Pulse Rate 96 92 90 Respiratory 8 12 Rate Blood Pressure 141/107 140/103 (mmHg) O2 Sat by Pulse 99 98 98 Oximetry 07/27/19 07/27/19 07/27/19 18:05 18:08 18:10 Temperature Pulse Rate 87 Respiratory 19 16 17 Rate Blood Pressure 146/99 149/97 (mmHg) O2 Sat by Pulse 91 Oximetry 07/27/19 07/27/19 07/27/19 18:15 18:20 18:27 Temperature Pulse Rate 86 86 84 Respiratory 15 15 9 Rate Blood Pressure 149/93 148/104 147/104 (mmHg) O2 Sat by Pulse 95 96 94 Oximetry 07/27/19 07/27/19 07/27/19 18:30 20:10 20:49 Temperature 98.0 F Pulse Rate 84 73 Respiratory 14 18 18 Rate Blood Pressure 159/101 138/75 (mmHg) O2 Sat by Pulse 94 94 Oximetry 07/27/19 07/27/19 07/27/19 21:05 21:42 22:26 Temperature 97.8 F 98.9 F Pulse Rate 81 74 Respiratory 18 18 14 Rate Blood Pressure 130/59 131/74 (mmHg) O2 Sat by Pulse 93 95 Oximetry 07/27/19 07/28/19 07/28/19 23:56 00:02 00:27 Temperature 98.3 F Pulse Rate 73 Respiratory 16 16 16 Rate Blood Pressure 126/77 (mmHg) O2 Sat by Pulse 98 Oximetry 07/28/19 07/28/19 07/28/19 02:00 02:41 02:45 Temperature 98.4 F Pulse Rate 68 Respiratory 16 16 16 Rate Blood Pressure 114/66 (mmHg) O2 Sat by Pulse 97 Oximetry 07/28/19 07/28/19 07/28/19 04:32 05:24 07:17 Temperature Pulse Rate Respiratory 16 16 16 Rate Blood Pressure (mmHg) O2 Sat by Pulse Oximetry 07/28/19 07/28/19 07/28/19 07:23 07:28 08:55 Temperature 98.1 F Pulse Rate 64 Respiratory 16 16 18 Rate Blood Pressure 103/73 (mmHg) O2 Sat by Pulse 92 Oximetry 07/28/19 10:57 Temperature Pulse Rate Respiratory 20 Rate Blood Pressure (mmHg) O2 Sat by Pulse Oximetry Mastectomy site: Prevena vacuum dressing in place. MAVIS: serosanguinous fluid Intake & Output 07/27/19 07/28/19 07/28/19 22:59 06:59 14:59 Intake Total 9795 491 4412 Output Total 240 1500 265 Balance 1235 -1020 1655 Intake: IV Fluids 1200 1200 LR 1200 1200 Oral 275 480 720 Output: MAVIS #1 70 200 90 Urine 150 1300 175 Residual 20 García 16 Fr 20 Other: Estimated Void Small # Bowel Movements 0 # Voids 1 A/P: POD#1 s/p left mastectomy and sentinel lymph node biopsy with immediate reconstruction. Doing better today, but as she has not tolerated food well yet , agree with plan to stay another day. Priscila
[2019-07-28] MEDS: Lactated Ringers 1000 ML Bag* 1,000 ML IV SCH (16:56)
[2019-07-29] MEDS: Morphine INJ* 2 MG/ML 1 ML SYRINGE (TWO MG - NEW SYRINGE VERSION) IV PRN (00:22)
[2019-07-29] MEDS: Ibuprofen TAB* 600 MG PO PRN (05:48)
[2019-07-29] MEDS: Heparin VIAL(*) 5000 UNITS/ML VIAL (FIVE THOUSAND) SUBCUT SCH (05:48)
--- NOTE | 2019-07-29 08:36 | PN ---
Progress Note - Progress Note Date of Service: 07/29/19 Note: Surgery Ms. Bowles reports she had some pain last night, she last had morphine at about midnight. She has been surprised by the amount of pain, but feels she can manage it now and she reports it never gets above 6/10. Her expressed concern about constipation, but she says she is not concerned and she has something at home for that anyway. Vital Signs 07/28/19 07/28/19 07/28/19 08:55 10:57 11:26 Temperature 98 F Pulse Rate 66 Respiratory 18 20 16 Rate Blood Pressure 114/63 (mmHg) O2 Sat by Pulse 94 Oximetry 07/28/19 07/28/19 07/28/19 12:04 13:06 16:08 Temperature 98.2 F Pulse Rate 69 Respiratory 18 18 18 Rate Blood Pressure 88/70 (mmHg) O2 Sat by Pulse 96 Oximetry 07/28/19 07/28/19 07/28/19 16:39 18:05 20:00 Temperature Pulse Rate 59 Respiratory 18 18 Rate Blood Pressure 100/56 (mmHg) O2 Sat by Pulse Oximetry 07/28/19 07/28/19 07/28/19 21:08 22:32 23:21 Temperature 97.9 F 98.5 F Pulse Rate 62 63 Respiratory 16 17 17 Rate Blood Pressure 108/65 114/70 (mmHg) O2 Sat by Pulse 95 93 Oximetry 07/29/19 07/29/19 07/29/19 00:00 00:22 01:18 Temperature Pulse Rate Respiratory 17 16 Rate Blood Pressure (mmHg) O2 Sat by Pulse 93 Oximetry 07/29/19 07/29/19 07/29/19 03:18 07:33 07:44 Temperature 98.5 F 98.6 F Pulse Rate 64 66 Respiratory 16 16 16 Rate Blood Pressure 136/78 139/81 (mmHg) O2 Sat by Pulse 94 94 Oximetry Mastectomy site: prevena vacuum dressing in place; the skin that is visible shows no signs of infection and appears viable. MAVIS: serosanguinous. Intake & Output 07/28/19 07/29/19 07/29/19 22:59 06:59 14:59 Intake Total 1628 1128 Output Total 545 585 300 Balance 1083 543 -300 Intake: IV Fluids 768 728 LR 768 728 Oral 860 400 Output: MAVIS #1 145 85 Urine 400 500 300 A/P: Doing well. Can go home once seen by Dr. Kinsey. Will f/u in office.
[2019-07-29] MEDS ORDERED: Ondansetron ODT TAB* 4 MG SL PRN (09:09)
[2019-07-29] MEDS: Losartan TAB* 25 MG PO SCH (09:10)
[2019-07-29] MEDS: FLUoxetine CAP* 10 MG PO SCH (09:10)
--- NOTE | 2019-07-29 09:15 | PN ---
Progress Note - Progress Note Date of Service: 07/29/19 SOAP: Subjective: Feeling better. Wants to go home. Objective: Alert, NAD Afebrile, VSS Left breast VAC Prevena Restor dressing in place and functioning well. Left chest area flat and soft with no signs of infection or hematoma. MAVIS serous drainage. Assessment: Doing well POD #2. Plan: Discharge Follow up my office in 3 days. Instructions given
[2019-07-29] MEDS: HYDROcodone/ACETAMIN 5-325 MG* 1 TAB PO PRN (09:53)
[2019-07-29 11:24] VITALS: BP 131/68
--- NOTE | 2019-08-17 13:36 | DS ---
DISCHARGE SUMMARY: DATE OF ADMISSION: 07/27/19 DATE OF DISCHARGE: 07/29/19 ADMISSION DIAGNOSIS: Left breast cancer. DISCHARGE DIAGNOSIS: Left breast cancer. PROCEDURES DURING HOSPITALIZATION: Included left mastectomy and sentinel lymph node biopsy by Dr. Copeland. She had immediate reconstruction by Dr. Kinsey. HISTORY OF PRESENT ILLNESS/HOSPITAL COURSE: Please see admission history and physical for details and findings at the time of admission. Ms. Bowles underwent surgery on the date of admission and then was admitted for monitoring overnight. The next morning, she had experienced pain that was not well controlled and so she elected to stay for another day. By the next morning, , she was doing well and had the pain under control, although she had some trouble in the night. She was considered stable for discharge and was discharged to home with instructions to follow up as an outpatient. [id number] #: [id number] GLADIS
== END 2019-07-29 11:30 | disposition home or self-care (01) ==
LOC: AA 07:00 → UNDOADMIN 07:00 → EDSTATUS 08:00 → SSU 19:00 → INTOOBSV 19:00 → AA 20:10 → SSU 20:10 → UNDODISIN 07-29 11:30
PROVIDERS: ADMIT Surgery; ATTEND Surgery
DX: C50.912 Malignant neoplasm of unspecified site of left female breast (principal); I10 Essential (primary) hypertension; F41.9 Anxiety disorder, unspecified; J45.909 Unspecified asthma, uncomplicated; Z79.899 Other long term (current) drug therapy
CPT/HCPCS: 78195; 88307; 88342; 96372; 96374; 96375; 96376; A9270-GY; A9541; G0378; J0690; J1100; J1240; J1580; J1644; J2250; J2270; J2405; J2704; J3010; J3490; Q4128

== ENCOUNTER → 2019-09-04 13:15 | Day surgery (SDC) | payer MEDICARE ==
[~2019-09-04 13:15] MED LIST changes: +Acetaminophen IV 1GM/100ML * 1,000 MG/100 ML VIAL IVPB ONE; +Bacitracin INJECTION* 50,000 UNITS ONE; +Dexamethasone IV* 4 MG/ML 1 ML (4 MG) ONE; +DiMENhydriNATE IV* 50 MG/ML VIAL IV PUSH PRN; -Famotidine IV* 10 MG/ML 2 ML (20 mg) IV ONE; +Gentamicin ADULT (*) 40 MG/ML VIAL (2 ML VIAL = 80 MG) ONE; +Heparin VIAL(*) 5000 UNITS/ML VIAL (FIVE THOUSAND) ONE; +Lidocaine 2% PF * 5 ML VIAL ONE; +Midazolam* 1 MG/ML 2 ML VIAL (2 MG) ONE; +Naloxone* 0.4 MG/ML 1 ML VIAL IV PRN; +Ondansetron INJ* 2 MG/ML VIAL ONE; +Povidone Iodine 5% OPTH* 30 ML BTL ONE; +Propofol* 10 MG/ML 20 ML BTL ONE; +Scopolamine 1.5 mg* PATCH ONE; +Sodium Citrate/Citric Acid* 15 ML UDC ONE; +Sodium Citrate/Citric Acid* 15 ML UDC PO ONE; +ceFAZolin 2 GM in NS PREMIX(*) 2 GM/100 ML BAG IVPB ONE; +ceFAZolin VIAL(*) VIAL ONE; +fentaNYL* 50 MCG/ML 2 ML VIAL (100 MCG VIAL) IV PRN; +fentaNYL* 50 MCG/ML 2 ML VIAL (100 MCG VIAL) ONE
[2019-09-04 18:18] VITALS: BP 138/88
== END | disposition home or self-care (01) ==
LOC: OR 13:15
PROVIDERS: ATTEND Plastic Surgery
DX: T81.89XA Other complications of procedures, not elsewhere classified, initial encounter (principal); Z85.3 Personal history of malignant neoplasm of breast; I10 Essential (primary) hypertension; F41.9 Anxiety disorder, unspecified; J45.909 Unspecified asthma, uncomplicated
CPT/HCPCS: 88305; A9270-GY; J0690; J1100; J1580; J1644; J2250; J2405; J2704; J3010

== ENCOUNTER 2019-12-11 05:47 | Day surgery (SDC) | payer MEDICARE ==
[~2019-12-11 05:47] MED LIST changes: -Acetaminophen IV 1GM/100ML * 1,000 MG/100 ML VIAL IVPB ONE; -Bacitracin INJECTION* 50,000 UNITS ONE; -Dexamethasone IV* 4 MG/ML 1 ML (4 MG) ONE; -DiMENhydriNATE IV* 50 MG/ML VIAL IV PUSH PRN; -Gentamicin ADULT (*) 40 MG/ML VIAL (2 ML VIAL = 80 MG) ONE; -Heparin VIAL(*) 5000 UNITS/ML VIAL (FIVE THOUSAND) ONE; -Lactated Ringers 1000 ML Bag* 1,000 ML IV SCH; -Lidocaine 2% PF * 5 ML VIAL ONE; -Midazolam* 1 MG/ML 2 ML VIAL (2 MG) ONE; -Naloxone* 0.4 MG/ML 1 ML VIAL IV PRN; -Ondansetron INJ* 2 MG/ML VIAL ONE; -Povidone Iodine 5% OPTH* 30 ML BTL ONE; -Propofol* 10 MG/ML 20 ML BTL ONE; -Scopolamine 1.5 mg* PATCH ONE; -Sodium Citrate/Citric Acid* 15 ML UDC ONE; -Sodium Citrate/Citric Acid* 15 ML UDC PO ONE; -ceFAZolin 2 GM in NS PREMIX(*) 2 GM/100 ML BAG IVPB ONE; -ceFAZolin VIAL(*) VIAL ONE; -fentaNYL* 50 MCG/ML 2 ML VIAL (100 MCG VIAL) IV PRN; -fentaNYL* 50 MCG/ML 2 ML VIAL (100 MCG VIAL) ONE
[2019-12-11] MEDS ORDERED: Lactated Ringers 1000 ML Bag* 1,000 ML IV SCH (06:00)
[2019-12-11] MEDS ORDERED: Succinylcholine* 20 MG/ML 10 ML VIAL ONE (06:30)
[2019-12-11] MEDS ORDERED: EPHEDrine (Pressors)* 50 MG/ML VIAL ONE (06:30)
[2019-12-11] MEDS ORDERED: Lidocaine 2% PF * 5 ML VIAL ONE (06:30)
[2019-12-11] MEDS ORDERED: Glycopyrrolate IV* 0.2 MG/ML 1 ML VIAL ONE (06:30)
[2019-12-11] MEDS ORDERED: Propofol* 10 MG/ML 20 ML BTL ONE (06:30)
[2019-12-11] MEDS ORDERED: Ketorolac INJ* 30 MG/ML 1 ML VIAL ONE (06:30)
[2019-12-11] MEDS ORDERED: fentaNYL* 50 MCG/ML 2 ML VIAL (100 MCG VIAL) ONE ×3 (06:30→10:28)
[2019-12-11] MEDS ORDERED: Midazolam* 1 MG/ML 2 ML VIAL (2 MG) ONE (06:30)
[2019-12-11] MEDS ORDERED: Dexamethasone IV* 4 MG/ML 1 ML (4 MG) ONE ×2 (06:30→06:36)
[2019-12-11] MEDS ORDERED: Rocuronium* 10 MG/ML VIAL ONE (06:30)
[2019-12-11] MEDS ORDERED: Ondansetron INJ* 2 MG/ML VIAL ONE ×2 (06:30→06:36)
[2019-12-11] MEDS ORDERED: Sterile Water for Inj* 10 ML ONE (06:35)
[2019-12-11] MEDS ORDERED: ceFAZolin 2 GM PREMIX in ORs 2 GM/50 ML BAG ONE (06:36)
[2019-12-11] MEDS ORDERED: Scopolamine 1.5 mg* PATCH ONE (06:36)
[2019-12-11] MEDS ORDERED: Heparin VIAL(*) 5000 UNITS/ML VIAL (FIVE THOUSAND) ONE (06:36)
[2019-12-11] MEDS ORDERED: Bacitracin INJECTION* 50,000 UNITS ONE (07:15)
[2019-12-11] MEDS ORDERED: Povidone Iodine 5% OPTH* 30 ML BTL ONE (07:15)
[2019-12-11] MEDS ORDERED: Gentamicin ADULT (*) 40 MG/ML VIAL (2 ML VIAL = 80 MG) ONE (07:15)
[2019-12-11] MEDS ORDERED: ceFAZolin VIAL(*) VIAL ONE (07:15)
[2019-12-11] MEDS ORDERED: Sugammadex * 200 MG/2 ML VIAL IV PUSH ONE (08:19)
[2019-12-11] MEDS ORDERED: Naloxone* 0.4 MG/ML 1 ML VIAL IV PRN (08:42)
[2019-12-11] MEDS: fentaNYL* 50 MCG/ML 2 ML VIAL (100 MCG VIAL) IV PRN ×4 (10:32→10:55)
[2019-12-11] MEDS ORDERED: HYDROcodone/ACETAMIN 5-325 MG* 1 TAB ONE (11:22)
[2019-12-11 11:43] VITALS: BP 139/90
== END 2019-12-11 12:03 | disposition home or self-care (01) ==
LOC: OR 05:47
PROVIDERS: ATTEND Plastic Surgery
DX: Z42.1 Encounter for breast reconstruction following mastectomy (principal); R73.01 Impaired fasting glucose; I10 Essential (primary) hypertension; E66.9 Obesity, unspecified; F33.1 Major depressive disorder, recurrent, moderate; D05.12 Intraductal carcinoma in situ of left breast; J45.40 Moderate persistent asthma, uncomplicated; N32.81 Overactive bladder; J30.1 Allergic rhinitis due to pollen; J45.20 Mild intermittent asthma, uncomplicated; Z68.30 Body mass index [BMI] 30.0-30.9, adult; F41.9 Anxiety disorder, unspecified; Z87.442 Personal history of urinary calculi
CPT/HCPCS: 88300; 88305; A9270-GY; C1789; J0330; J0690; J1100; J1580; J1644; J1885; J2250; J2405; J2704; J3010

== ENCOUNTER 2021-09-22 06:46 | Observation (INO) ==
[~2021-09-22 06:46] MED LIST changes: +Buffered Lidocaine 1% SYRIN 1 ml INTRADERM ONE; -Buffered Lidocaine 1% SYRIN* 1 ML/SYRINGE INTRADERM ONE; +DiMENhydriNATE IV 50 mg/ml 1 ml VIAL IV PUSH ONE; +HYDROcodone/ACETAMIN 5/325 mg TAB PO PRN; +Lactated Ringers 1000 ml BAG 1,000 ML IV SCH; +Metoclopramide 5 MG/ML VIAL (10 mg) IV PRN; +Naloxone 0.4 mg VIAL 0.4 mg/ml 1 ml VIAL IV PRN; +Ondansetron 4 mg VIAL 2 MG/ML 2 ml VIAL IV PRN; +fentaNYL 100 mcg/2 ml 50 MCG/ML VIAL IV PRN
[2021-09-22] MEDS ORDERED: ceFAZolin 2 GM in NS PREMIX 2 GM/100 ML BAG IVPB ONE (06:48)
[2021-09-22] MEDS ORDERED: DiMENhydriNATE IV 50 mg/ml 1 ml VIAL ONE (06:48)
[2021-09-22] MEDS ORDERED: Ropivacaine 5 MG/ML 20 ML VIAL 0.5% (100 MG) ONE (07:36)
[2021-09-22] MEDS ORDERED: Lidocaine 2% PF 5 ML VIAL ONE (09:00)
[2021-09-22] MEDS ORDERED: Ketamine HCL 50 mg/ml 10 ml VIAL (500 MG) ONE (09:00)
[2021-09-22] MEDS ORDERED: Propofol 10 MG/ML 20 ML BTL ONE ×2 (09:00→12:57)
[2021-09-22] MEDS ORDERED: Bupivacaine 0.5% 50 ML MDV VIAL ONE (09:39)
[2021-09-22] MEDS ORDERED: fentaNYL 100 mcg/2 ml 50 MCG/ML VIAL ONE (09:39)
[2021-09-22] MEDS ORDERED: Midazolam 2 mg/2 ml VIAL 1 mg/ml 2 ml VIAL (2 mg) ONE ×3 (09:39→11:54)
[2021-09-22] MEDS ORDERED: Dexamethasone IV 4 MG/ML VIAL 1 ml VIAL ONE ×2 (09:39→11:21)
[2021-09-22] MEDS ORDERED: Ondansetron 4 mg VIAL 2 MG/ML 2 ml VIAL ONE (11:21)
[2021-09-22] MEDS ORDERED: diPHENhydraMINE IV 50 MG/ML 1 ml VIAL (BENADRYL) IV PRN (12:13)
[2021-09-22] MEDS ORDERED: Ondansetron 4 mg VIAL 2 MG/ML 2 ml VIAL IV PRN (12:13)
[2021-09-22] MEDS ORDERED: diPHENhydraMINE 25 mg TAB PO PRN (12:13)
[2021-09-22] MEDS ORDERED: Magnesium Hydroxide LIQ 30 ML UDC PO PRN (12:13)
[2021-09-22] MEDS ORDERED: Lactulose 30 ml UDC PO PRN (12:13)
[2021-09-22] MEDS ORDERED: Ondansetron ODT 4 mg TAB 4 MG TAB PO PRN (12:13)
[2021-09-22] MEDS ORDERED: Morphine 2 MG/ML SYRINGE IV PRN (12:13)
[2021-09-22] MEDS: Lactated Ringers 1000 ml BAG 1,000 ML IV SCH (15:03)
[2021-09-22] MEDS: ceFAZolin 1 GM ADVAN 1 GM in NS 0.9% 50 ML 50 ML IVPB SCH (18:24)
[2021-09-22] MEDS: Magnesium Hydroxide LIQ 30 ML UDC PO SCH (20:49)
[2021-09-22] MEDS: Morphine ER 15 mg TAB ** extended release PO SCH (21:23)
[2021-09-23] MEDS: ceFAZolin 1 GM ADVAN 1 GM in NS 0.9% 50 ML 50 ML IVPB SCH ×2 (02:31→10:10)
[2021-09-23] MEDS: Lactated Ringers 1000 ml BAG 1,000 ML IV SCH (02:54)
[2021-09-23 06:26] LABS: Hematocrit 38 % (35-47); Hemoglobin 12.4 g/dL (12.0-16.0); Mean Platelet Volume 9.3 fL (7.4-10.4); Platelet Count 169 10^3/uL (150-450)
[2021-09-23 06:39] LABS: Calcium 8.9 mg/dL (8.6-10.3); Potassium 3.9 mmol/L (3.5-5.0)
[2021-09-23] MEDS ORDERED: Vitamin THERAPEUTIC TAB PO SCH (09:00)
[2021-09-23] MEDS: Magnesium Hydroxide LIQ 30 ML UDC PO SCH (10:10)
[2021-09-23] MEDS: Morphine ER 15 mg TAB ** extended release PO SCH (10:20)
[2021-09-23 11:10] VITALS: BP 133/70
== END 2021-09-23 14:05 | disposition home or self-care (01) ==
LOC: AA 06:46 → INTOOBSV 06:46 → SSU 14:54
PROVIDERS: ADMIT Orthopaedic Surgery Adult Reconstructive Orthopaedic Surgery; ATTEND Orthopaedic Surgery Adult Reconstructive Orthopaedic Surgery

== ENCOUNTER 2022-08-31 05:48 | Observation (INO) ==
[~2022-08-31 05:48] MED LIST changes: -DiMENhydriNATE IV 50 mg/ml 1 ml VIAL IV PUSH ONE; -fentaNYL 100 mcg/2 ml 50 MCG/ML VIAL IV PRN
[2022-08-31] MEDS ORDERED: ceFAZolin 2 GM in NS PREMIX 2 GM/100 ML BAG IVPB ONE (06:34)
[2022-08-31] MEDS ORDERED: Ropivacaine 5 MG/ML 20 ML VIAL 0.5% (100 MG) ONE (07:11)
[2022-08-31] MEDS ORDERED: fentaNYL 100 mcg/2 ml 50 MCG/ML VIAL ONE ×2 (07:20→10:56)
[2022-08-31] MEDS ORDERED: Midazolam 2 mg/2 ml VIAL 1 mg/ml 2 ml VIAL (2 mg) ONE (07:20)
[2022-08-31] MEDS ORDERED: Lidocaine 2% PF 5 ML VIAL ONE (07:33)
[2022-08-31] MEDS ORDERED: Propofol 10 MG/ML 20 ML BTL ONE (07:33)
[2022-08-31] MEDS ORDERED: Phenylephrine 40 mcg/mL 10mL (400mcg) SYRINGE ONE ×2 (07:50→09:21)
[2022-08-31] MEDS ORDERED: HYDROmorphone 0.5 MG/0.5 ML SYRINGE ONE (07:53)
[2022-08-31] MEDS ORDERED: fentaNYL 250 mcg/5 ml 50 MCG/ML 5 ml VIAL (250 MCG) ONE (08:04)
[2022-08-31] MEDS ORDERED: Dexamethasone IV 4 MG/ML VIAL 1 ml VIAL ONE (08:09)
[2022-08-31] MEDS ORDERED: Ondansetron 4 mg VIAL 2 MG/ML 2 ml VIAL ONE (08:09)
[2022-08-31] MEDS ORDERED: Esmolol 10 MG/ML 10 ML (100 mg) ONE (09:16)
[2022-08-31] MEDS ORDERED: Morphine 2 MG/ML SYRINGE IV PRN (09:17)
[2022-08-31] MEDS ORDERED: Magnesium Hydroxide LIQ 30 ML UDC PO PRN (09:17)
[2022-08-31] MEDS ORDERED: Ondansetron ODT 4 mg TAB 4 MG TAB PO PRN (09:17)
[2022-08-31] MEDS ORDERED: Lactulose 30 ml UDC PO PRN (09:17)
[2022-08-31] MEDS ORDERED: Ondansetron 4 mg VIAL 2 MG/ML 2 ml VIAL IV PRN (09:17)
[2022-08-31] MEDS ORDERED: Lactated Ringers 1000 ml BAG 1,000 ML IV SCH (10:00)
[2022-08-31] MEDS ORDERED: HYDROcodone/ACETAMIN 5/325 mg TAB ONE (10:56)
[2022-08-31] MEDS: fentaNYL 100 mcg/2 ml 50 MCG/ML VIAL IV PRN ×2 (10:58→11:24)
[2022-08-31] MEDS ORDERED: Metoclopramide 5 MG/ML VIAL (10 mg) ONE (11:18)
[2022-08-31] MEDS: ceFAZolin 1 GM ADVAN 1 GM in NS 0.9% 50 ML 50 ML IVPB SCH (15:45)
[2022-08-31] MEDS: Magnesium Hydroxide LIQ 30 ML UDC PO SCH (19:54)
[2022-09-01] MEDS: ceFAZolin 1 GM ADVAN 1 GM in NS 0.9% 50 ML 50 ML IVPB SCH ×2 (00:21→09:01)
[2022-09-01 06:25] LABS: Hematocrit 29 % (35-47); Hemoglobin 9.8 g/dL (12.0-16.0); Mean Platelet Volume 9.3 fL (7.4-10.4); Platelet Count 145 10^3/uL (150-450)
[2022-09-01 06:50] LABS: Calcium 8.3 mg/dL (8.6-10.3); Potassium 4.3 mmol/L (3.5-5.0); eGFR CKD-EPI 57.2 (>60)
[2022-09-01] MEDS ORDERED: Vitamin THERAPEUTIC TAB PO SCH (09:00)
[2022-09-01] MEDS: Magnesium Hydroxide LIQ 30 ML UDC PO SCH (09:45)
[2022-09-01 11:47] VITALS: BP 103/49
== END 2022-09-01 14:15 | disposition home or self-care (01) ==
LOC: INTOOBSV 05:48 → AA 05:48 → SSU 13:19
PROVIDERS: ADMIT Orthopaedic Surgery Adult Reconstructive Orthopaedic Surgery; ATTEND Orthopaedic Surgery Adult Reconstructive Orthopaedic Surgery